=== PATIENT | male | born 1985 | race Caucasian/White ===

== ENCOUNTER 2021-10-01 17:27 | Emergency (ER) | payer OTHER ==
[~2021-10-01 17:27] MED LIST: VIC PO
--- NOTE | 2021-10-01 17:35 | NUR ---
CALLED TO TRIAGE NO ANSWER
--- NOTE | 2021-10-01 17:45 | NUR ---
CALLED TO TRIAGE SECOND TIME NO ANSWER
--- NOTE | 2021-10-01 17:55 | NUR ---
PATIENT LEFT WITHOUT BEING SEEN BY DR. TOBIN. NO FURTHER CARE PROVIDED FOR PATIENT.
== END 2021-10-01 17:55 | disposition left against medical advice (07) ==
LOC: MED 17:27
DX: R41.0 Disorientation, unspecified (principal); Z53.21 Procedure and treatment not carried out due to patient leaving prior to being seen by health care provider